=== PATIENT | male | born 1970 | race American Indian/Alaskan Native ===

== ENCOUNTER 2018-06-22 08:03 | Emergency (ER) | payer SELFPAY ==
[2018-06-22 08:07] VITALS: BMI 27.6
[2018-06-22 10:13] LABS: BASO % 0.5 % (0.0-2.0); EOS # 0.3 K/uL (0.0-0.7); EOS % 3.6 % (0.0-4.0); HEMOGLOBIN 10.2 g/dL (12.0-18.0); LYMPH # 1.4 K/uL (1.0-4.3); LYMPH % 18.7 % (20.0-40.0); MEAN CELL VOLUME 87.9 fl (80.0-94.0); MEAN CORPUSCULAR HEMOGLOBIN 29.2 pg (27.0-31.0); MEAN CORPUSCULAR HGB CONC 33.3 g/dL (33.0-37.0); MEAN PLATELET VOLUME 7.4 fl (7.2-11.7); MONO # 0.5 K/uL (0.0-0.8); MONO % 7.5 % (0.0-10.0); NEUT % 69.7 % (50.0-75.0); RBC 3.48 Mil/uL (4.40-5.90); RED CELL DISTRIBUTION WIDTH 14.8 % (11.5-14.5); WHITE BLOOD COUNT 7.2 K/uL (4.8-10.8)
[2018-06-22 10:24] LABS: ALBUMIN 3.5 g/dL (3.5-5.0); ALT/SGPT 44 U/L (21-72); AST/SGOT 63 U/L (17-59); BLOOD UREA NITROGEN 11 mg/dl (9-20); CALCIUM 8.9 mg/dL (8.4-10.2); GFR AFRICAN-AMERICAN > 60; GFR NON-AFRICAN AMERICAN > 60
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
--- NOTE | 2018-06-22 11:57 | RAD ---
Date of service: 06/22/2018 HISTORY: Medical clearance COMPARISON: 09/29/2016 FINDINGS: LUNGS: No active pulmonary disease. PLEURA: No significant pleural effusion identified, no pneumothorax apparent. CARDIOVASCULAR: Normal. OSSEOUS STRUCTURES: No significant abnormalities. VISUALIZED UPPER ABDOMEN: Normal. OTHER FINDINGS: None. IMPRESSION: No active disease.
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
--- NOTE | 2018-06-22 22:47 | CARD ---
APPROVED REPORT Date of service: 06/22/2018 EKG Measurement Heart [id number] <Conclusion> Normal sinus rhythm Nonspecific intraventricular conduction delay T wave abnormality, consider lateral ischemia Abnormal ECG
[2018-06-22] MEDS ORDERED: DiphenhydrAMINE 50 mg/ml Inj IVP STA (23:58)
[2018-06-23] MEDS ORDERED: DiphenhydrAMINE 50 mg/ml Inj ONE ×2 (00:02→09:53)
--- NOTE | 2018-06-23 00:19 | ED PDOC ---
- Laboratory Results Result Diagrams: 06/22/18 10:09 06/22/18 10:09 - ECG O2 Sat by Pulse Oximetry: 99 (RA) Pulse Ox Interpretation: Normal Medical Decision Making Medical Decision Makin:00 Patient signed out to me by Dr. Styles pending [facility], [facility] evaluation. 02:44 UDS reviewed, patient positive for cocaine and cannabinoids. Patient medically cleared and accepted by [facility]. Currently pending bed assignment. 04:06 Patient noted to be agitated; patient medicated with Haldol 5mg and Ativan 2mg. Patient placed in 4-pt restraints due to risk for harm to self/staff. 07:00 Patient to be signed out to Dr. Lewis pending bed assignment at [facility]. Scribe Attestation: Documented by Yelitza Keiat, acting as a scribe for Jose Daniel La MD. Provider Scribe Attestation: All medical record entries made by the Scribe were at my direction and personally dictated by me. I have reviewed the chart and agree that the record accurately reflects my personal performance of the history, physical exam, medical decision making, and the department course for this patient. I have also personally directed, reviewed, and agree with the discharge instructions and disposition. Disposition - Clinical Impression Clinical Impression: Drug abuse, Brinda, Schizoaffective disorder - POA Present On Arrival: None - Disposition Disposition: Transfer of Care Disposition Time: 07:00 Condition: STABLE Forms: [employer] (Tajik) Patient Signed Over To: Anthony Lewis
[2018-06-23 02:03] LABS: URINE BACTERIA RARE (<OCC); URINE BILIRUBIN NEGATIVE (NEGATIVE); URINE BLOOD NEGATIVE (NEGATIVE); URINE CLARITY SLIGHTY-CLOUDY (Clear); URINE COLOR YELLOW (YELLOW); URINE GLUCOSE (UA) NEG (Normal); URINE LEUKOCYTE ESTERASE NEG Leu/uL (Negative); URINE PROTEIN NEGATIVE (NEGATIVE)
[2018-06-23 02:28] LABS: BARBITURATES, UR NEGATIVE (NEGATIVE); BENZODIAZEPINES, UR NEGATIVE (NEGATIVE); OPIATES, UR NEGATIVE (NEGATIVE); PHENCYCLIDINE, UR NEGATIVE (NEGATIVE)
[2018-06-23 02:45] VITALS: O2SAT 99
--- NOTE | 2018-06-23 08:30 | CP.PCM.CON ---
History of Present Illness - History of Present Illness History of Present Illness: Psychiatry consult note CC: Aggression/agitation HPI: 47 yo male, poor historian, presents acutely agitated and aggressive, w/ tangential, disorganized speech, poor insight/judgement. Patient is currently sedated due to needing acute PRN medications for aggression. [place] Roller attempted to wake patient and he just yelled "hermes!!!" and then fell back asleep. Patient was screened for involuntary psychiatric admission, accepted, pending bed and transfer. Impression: 47 yo male w/ bipolar disorder vs schizoaffective disorder, pending transfer to [facility] for involuntary psychiatric admission. -Haldol 5 mg PO/IM Q6 hr PRN agitation/ Ativan 2 mg PO/IM Q6hr PRN agitation/ Benadryl 50 mg PO/IM Q 6 hr PRN agitation -1:1 for safety Past Patient History - Infectious Disease Hx of Infectious Diseases: None - Past Social History Smoking Status: Unknown If Ever Smoked - CARDIAC Hx Cardiac Disorders: No Hx Hypertension: No - PULMONARY Hx Tuberculosis: No - NEUROLOGICAL HX Cerebrovascular Accident: No Hx Seizures: No - HEENT Hx HEENT Problems: No - RENAL Hx Chronic Kidney Disease: No - ENDOCRINE/METABOLIC Hx Endocrine Disorders: No - HEMATOLOGICAL/ONCOLOGICAL Hx Cancer: No Hx Human Immunodeficiency Virus (HIV): No - INTEGUMENTARY Hx Dermatological Problems: No - MUSCULOSKELETAL/RHEUMATOLOGICAL Hx Falls: Yes - GASTROINTESTINAL Hx Gastrointestinal Disorders: No - GENITOURINARY/GYNECOLOGICAL Hx Sexually Transmitted Disorders: No - PSYCHIATRIC Hx Psychophysiologic Disorder: No Hx Substance Use: Yes - SURGICAL HISTORY Hx Amputation: Yes (left foot (5 toes), right foot (2nd and 3rd toe)) - ANESTHESIA Hx Anesthesia: Yes Meds Allergies/Adverse Reactions: Allergies Allergy/AdvReac Type Severity Reaction Status Date / Time No Known Allergies Allergy Unverified 09/07/17 13:02 Results - Vital Signs Recent Vital Signs: Last Vital Signs Temp 98.0 F 06/23/18 01:34 Pulse 67 06/23/18 06:36 Resp 17 06/23/18 06:36 BP 129/73 06/23/18 06:36 Pulse Ox 99 06/23/18 06:44 - Labs Result Diagrams: 06/22/18 10:09 06/22/18 10:09 Labs: Laboratory Results - last 24 hr 06/22/18 06/22/1806/22/18 01:45 01:45 10:09 WBC RBC Hgb Hct MCV MCH MCHC RDW Plt Count MPV Neut % (Auto) Lymph % (Auto) [place] % (Auto) Eos % (Auto) Baso % (Auto) Neut # (Auto) Lymph # (Auto) [place] # (Auto) Eos # (Auto) Baso # (Auto) Sodium 138 Potassium 3.4 L Chloride 103 Carbon Dioxide 29 Anion Gap 9 L BUN 11 Creatinine 0.8 Est GFR ( Amer) > 60 Est GFR (Non-Af Amer) > 60 Random Glucose 99 Calcium 8.9 Total Bilirubin 0.5 AST 63 H ALT 44 Alkaline Phosphatase 48 Total Protein 6.8 Albumin 3.5 Globulin 3.3 Albumin/Globulin Ratio 1.0 Urine Color Yellow Urine Clarity Slighty-cloudy Urine pH 6.0 Ur Specific [place] 1.015 Urine Protein Negative Urine Glucose (UA) Neg Urine Ketones Negative Urine Blood Negative Urine Nitrate Negative Urine Bilirubin Negative Urine Urobilinogen 4.0 Ur Leukocyte Esterase Neg Urine RBC (Auto) 2 Urine Microscopic WBC 1 Urine Bacteria Rare Urine Opiates Screen Negative Urine Methadone Screen Negative Ur Barbiturates Screen Negative Ur Phencyclidine Scrn Negative Ur Amphetamines Screen Negative U Benzodiazepines Scrn Negative U Oth Cocaine Metabols Positive H U Cannabinoids Screen Positive H Alcohol, Quantitative < 10 06/22/18 10:09 WBC 7.2 RBC 3.48 L Hgb 10.2 L D Hct 30.6 L MCV 87.9 D MCH 29.2 MCHC 33.3 RDW 14.8 H Plt Count 231 MPV 7.4 Neut % (Auto) 69.7 Lymph % (Auto) 18.7 L [place] % (Auto) 7.5 Eos % (Auto) 3.6 Baso % (Auto) 0.5 Neut # (Auto) 5.0 Lymph # (Auto) 1.4 [place] # (Auto) 0.5 Eos # (Auto) 0.3 Baso # (Auto) 0.0 Sodium Potassium Chloride Carbon Dioxide Anion Gap BUN Creatinine Est GFR ( Amer) Est GFR (Non-Af Amer) Random Glucose Calcium Total Bilirubin AST ALT Alkaline Phosphatase Total Protein Albumin Globulin Albumin/Globulin Ratio Urine Color Urine Clarity Urine pH Ur Specific [place] Urine Protein Urine Glucose (UA) Urine Ketones Urine Blood Urine Nitrate Urine Bilirubin Urine Urobilinogen Ur Leukocyte Esterase Urine RBC (Auto) Urine Microscopic WBC Urine Bacteria Urine Opiates Screen Urine Methadone Screen Ur Barbiturates Screen Ur Phencyclidine Scrn Ur Amphetamines Screen U Benzodiazepines Scrn U Oth Cocaine Metabols U Cannabinoids Screen Alcohol, Quantitative
[2018-06-23 08:31] VITALS: TEMP 98
[2018-06-23] MEDS ORDERED: DiphenhydrAMINE 50 mg/ml Inj IM STA (09:47)
--- NOTE | 2018-06-23 10:07 | RAD ---
Date of service: 06/23/2018 HISTORY: cough COMPARISON: No prior. FINDINGS: LUNGS: Mild bibasilar atelectasis. PLEURA: No significant pleural effusion identified, no pneumothorax apparent. CARDIOVASCULAR: Normal. OSSEOUS STRUCTURES: No significant abnormalities. VISUALIZED UPPER ABDOMEN: Normal. OTHER FINDINGS: None. IMPRESSION: Mild bibasilar atelectasis.
[2018-06-23] MEDS ORDERED: Povidone Iodine Oint 10% Foilpak UD ONE (11:16)
--- NOTE | 2018-06-23 14:58 | ED PDOC ---
- Laboratory Results Result Diagrams: 06/22/18 10:09 06/22/18 10:09 - ECG O2 Sat by Pulse Oximetry: 99 (RA) Disposition - Clinical Impression Clinical Impression: Drug abuse, Brinda, Schizoaffective disorder - POA Present On Arrival: None - Disposition Disposition: Other Institution Disposition Time: 14:57 Condition: FAIR Forms: [facility] (Czech)
[2018-06-23 15:23] VITALS: BP 141/73; PULSE 75; RESP 18
== END 2018-06-23 15:45 | disposition short-term general hospital (02) ==
LOC: EDBD → EDUNIT# 08:03 → H.ER 08:03
DX: F19.10 Other psychoactive substance abuse, uncomplicated (principal); Z86.59 Personal history of other mental and behavioral disorders; Z00.8 Encounter for other general examination
CPT/HCPCS: 71045; 80053; 81003; 85025; 93005; 96372; 96374; 99285; G0480; J1200; J1630; J2060; J3486